=== PATIENT | male | born 1980 | race Caucasian/White ===

== ENCOUNTER 2021-01-25 18:51 | Emergency (ER) | payer BC ==
[~2021-01-25] VITALS: Ht 170.2 cm; Wt 130.6 kg
[2021-01-25] MEDS ORDERED: CEPHALEXIN500 MG PO (20:07)
[2021-01-25 20:17] VITALS: BP 168/95
== END 2021-01-25 20:20 | disposition home or self-care (01) ==
LOC: ER 18:51
DX: S61.217A Laceration without foreign body of left little finger without damage to nail, initial encounter (principal); W26.9XXA Contact with unspecified sharp object(s), initial encounter; Y93.89 Activity, other specified; Y92.89 Other specified places as the place of occurrence of the external cause; Y99.8 Other external cause status